=== PATIENT | male | born 1970 | race Caucasian/White ===

== ENCOUNTER 2021-10-04 12:14 | Emergency (ER) | payer OTHER ==
[2021-10-04 13:59] LABS: HEMOGLOBIN 14.3 gm/dl (14.0-17.5); RED BLOOD COUNT 4.78 M/UL (4.20-5.50); WHITE BLOOD COUNT 7.8 K/UL (4.5-11.0)
[2021-10-04 14:30] LABS: BUN/CREATININE RATIO 19 (0-10)
[2021-10-04] MEDS ORDERED: OMEPRAZOLE40 MG PO (15:17)
[2021-10-04] MEDS ORDERED: CARAFATE1 GM PO (15:18)
== END 2021-10-04 15:38 | disposition home or self-care (01) ==
LOC: ER1 12:14
PROVIDERS: Emergency Medicine
DX: R07.89 Other chest pain (principal); R13.10 Dysphagia, unspecified; F17.200 Nicotine dependence, unspecified, uncomplicated
CPT/HCPCS: 71045; 80053; 82550; 82553; 83690; 84484; 85025; 99285